=== PATIENT | female | born 1990 | race Caucasian/White ===

== ENCOUNTER 2024-08-15 06:57 | Inpatient (IN) | payer OTHER, SELFPAY ==
[2024-08-15] VITALS (119 sets, daily range): BP systolic 103–186; BP diastolic 28–123; PULSE 58–172; RESP 18; TEMP 36.3–36.9; O2SAT 96–100; BMI 32.1
[2024-08-15 08:02] LABS: Basophils Percent Auto 0.4 % (0.2-1.2); Eosinophils Absolute Auto 0.1 K/mm3 (0-0.3); Eosinophils Percent Auto 1.5 % (0-4.4); Hematocrit 35.6 % (37.0-47.0); Hemoglobin 11.8 g/dL (12.0-15.0); Immature Granulocyte Absolute 0.04 K/mm3 (0.00-0.031); Immature Granulocyte Percent A 0.5 % (0-0.5); Lymphocytes Absolute Auto 1.77 K/mm3 (0.9-3.2); Lymphocytes Percent Auto 24.2 % (18.3-44.2); Mean Corpuscular HGB Conc 33.1 g/dl (32-36); Mean Corpuscular Hemoglobin 30.4 pg (26-34); Mean Corpuscular Volume 91.8 fl (80-100); Monocytes Absolute Auto 0.4 K/mm3 (0.1-0.6); Neutrophils Absolute Auto 4.9 K/mm3 (1.3-6.7); Neutrophils Percent Auto 67.4 % (45.5-73.1); Platelet Count Result 240 k/mm3 (150-375); Red Blood Count 3.88 M/mm3 (4.2-5.4); Red Cell Distribution Width 13.9 % (11.5-14.5); White Blood Count 7.3 K/mm3 (4.5-10.0)
--- NOTE | 2024-08-15 08:16 | LDADM ---
This patient, Kami Hawkins, was admitted to Labor/Delivery/Recovery 103 on 08/15/24 at 06:57. Plans for labor, pain management and were discussed with patient. Patient/family oriented to hospital policies and general routines including ID bracelet, bed and alarms, visiting hours, pain management, procedures, bathroom and other care routines, personal items, smoking policy, room service/diet and guest tray routines, security routines, and visiting hours. Patient/Family are encouraged to report perceived risks to care and to ask questions if they do not understand what they are told or what they should do. See OBIX for further documentation.
--- NOTE | 2024-08-15 08:18 | WPDOBADMIT ---
Obstetrics - Admit Note Admission Note: record reviewed. Additions to the history and/or subsequent changes in the physical findings follow. 33 y/o at 38 3/7 weeks here with gush of fluid at 0600. SROM confirmed on L&D. Feeling occasional contractions. GBS pos. AVSS NST reactive TOCO: contractions irregularly ABD soft, nontender, gravid, vertex EXT nontender Cervix 3/50/-2. A: IUP at term with SROM. P: Anticipate . Ampicillin for GBS colonization.
[2024-08-15] MEDS: AMPICILLIN 2 GM/NS 100 ML 2 GM/100 ML BAG IVPB (08:43)
[2024-08-15] MEDS: LACTATED RINGERS 1,000 ML 125 ML IV CONT ×3 (08:43→18:38)
[2024-08-15 08:54] LABS: HIV 1/2 Ab P24 Ag Result Negative (Negative)
[2024-08-15 11:00] LABS: Rapid Plasma Reagin Non-Reactive (NonReactive)
[2024-08-15] MEDS: OXYTOCIN 30 UNITS/NS 500 ML 30 UNITS/500 ML BAG IV CONT (11:26)
[2024-08-15] MEDS: AMPICILLIN 1 GM/NS 50 ML 1 GM/50 ML BAG IVPB ×2 (13:11→16:51)
--- NOTE | 2024-08-15 14:37 | WPDANESEPP ---
Anes - Eval Pre Procedure Procedure: Labor epidural Date/Time: 08/15/24 14:37 Surgeon: Shankar Preop Diagnosis: Pain during labor Pre Op Diagnosis: Spontaneous Rupture of Membranes Patient Data Age: 33 Gender: F Height: 1.63 m Weight: 85 kg Last Vital Signs Temp 36.3 C L 08/15/24 12:00 Pulse 74 08/15/24 14:35 BP 141/85 H 08/15/24 14:35 Pulse Ox 100 08/15/24 14:36 O2 Del Method Room Air 08/15/24 08:14 Allergies Allergy/AdvReac Type Severity Reaction Status Date / Time No Known Allergies Allergy Verified 07/27/24 13:24 Home Medications Medication Instructions Recorded Confirmed Type aspirin 81 mg tablet 81 mg PO DAILY 07/27/24 07/27/24 History vits no.126-ferrous fum 1 tablet PO DAILY 07/27/24 07/27/24 History 28 mg iron-folic acid 800 mcg tablet (Classic ) valacyclovir 500 mg tablet 500 mg PO DAILY 07/27/24 08/15/24 History (Valtrex) Laboratory Tests 08/15/24 07:34 WBC 7.3 K/mm3 (4.5-10.0) RBC 3.88 L M/mm3 (4.2-5.4) Hgb 11.8 L g/dL (12.0-15.0) Hct 35.6 L % (37.0-47.0) MCV 91.8 fl (80-100) MCH 30.4 pg (26-34) MCHC 33.1 g/dl (32-36) RDW 13.9 % (11.5-14.5) Plt Count 240 k/mm3 (150-375) MPV 11.0 H fl (7.4-10.4) Immature Gran % (Auto) 0.5 % (0-0.5) Neut % (Auto) 67.4 % (45.5-73.1) Lymph % (Auto) 24.2 % (18.3-44.2) [place] % (Auto) 6.0 % (2.6-8.5) Eos % (Auto) 1.5 % (0-4.4) Baso % (Auto) 0.4 % (0.2-1.2) Lymph # (Auto) 1.77 K/mm3 (0.9-3.2) [place] # (Auto) 0.4 K/mm3 (0.1-0.6) Eos # (Auto) 0.1 K/mm3 (0-0.3) Baso # (Auto) 0.0 K/mm3 (0.0-0.1) Abs Immat Gran (auto) 0.04 H K/mm3 (0.00-0.031) Absolute Neuts (auto) 4.9 K/mm3 (1.3-6.7) Absolute Nucleated RBC 0.000 K/mm3 (0.0-0.012) Nucleated RBC % 0.0 % (0.0-0.2) RPR Non-reactive (NonReactive) HIV 1&2 Ab/P24 Ag 4thGn Negative (Negative) Blood Type O Positive Antibody Screen Negative Patient hx anesthesia problems: none Family hx anesthesia problems: none Results Review: All pre-operative results and documents have been reviewed as part of the pre-operative evaluation. [facility] [place] Family History Family History Grandparent Family history of malignant neoplasm of breast in first degree relative Mother Family history of malignant neoplasm of breast in first degree relative Other Diabetes mellitus Social History Social History Smoking status: Never smoker Alcohol intake: never Substance use: never Do You Feel Safe in your Home?: Yes Lack of Transportation: No Lack of Food: Never True Current Housing: I Have Housing Concerned About Future Housing: No Difficulty Paying Gas/Electric Bills: No Difficulty Paying for Meds: No Currently Unemployed: No Education: Master's Degree or Higher Difficulty w/ Childcare or Family Care: No Spiritual care concerns: No Exam Day of Procedure 08/15/24 14:37 Patient weight: overweight Heart: regular rate and rhythm Lungs: clear to auscultation and normal air movement Airway: Mallampati scale class II Neurological: alert and oriented
--- NOTE | 2024-08-15 19:34 | P.PCNOB_ITS ---
OB - Vaginal Delivery Note Procedure Delivery date: 08/15/24 Events: Positive Group B Strep (GBS) Induction method: None Delivery monitor: External FHT and External Uterine Route of delivery: Episiotomy description: None Laceration Description: None Specimen: Yes (cord blood) Quantitative Blood Loss (ml): 95 Anesthesia type: Epidural Disposition: PACU Complications: None Narrative: 33 y/o at 38 3/7 weeks gestation who presented to the hospital after a gush of clear fluid. SROM was confirmed. She received ampicillin for GBS colonization. She received an epidural for pain control. Labor was augmented with oxytocin. Her labor progressed and her cervix dilated completely. She pushed with good effort and delivered the 's head to the perineum. A loose nuchal cord was splinted and the body delivered. The cord was reduced and the nose and mouth were bulb suctioned. After a delay, the cord was clamped and cut. The was handed off the field. Cord blood was collected. The caterina stewart delivered spontaneously and was grossly normal in appearance. The usual 3 vessel cord was noted. There were no lacerations. Sponge, needle and instrument counts were correct. The patient was taken to recovery room in stable condition. The infant went to the nursery in stable condition. I was present and scrubbed for the entire delivery. Dequincy Baby Date of : 08/15/24 Time of : 19:22 Gestational Age by Date: 37 gender: Male presentation: vertex position: Left Occiput Anterior Placenta delivery description: Spontaneous and Normal Configuration Cord Vessel Description: 3 Vessels, Nuchal Cord (x1) and Delayed Cord Clamping
--- NOTE | 2024-08-15 19:37 | PM.OBDSVD ---
DS: Admitting Diagnosis Discharge Date 08/16/24 Admitting Diagnosis IUP at 38 3/7 weeks SROM GBS pos DS: Discharge Diagnosis Discharge Diagnosis (1) (normal spontaneous vaginal delivery): Code(s): O80 - Encounter for full-term uncomplicated delivery Status: Acute (2) GBS (group B Streptococcus carrier), +RV culture, currently : Code(s): O99.820 - Streptococcus B carrier state complicating Status: Acute OB - DS: Summary OB Procedures : None OB Procedures Intrapartum: Spontaneous Vag Delivery and GBS prophylaxis OB Procedures: : None Peripartum Data Laceration Description: None Episiotomy description: None Time Spent with Patient Time attestation: Total time spent providing and/or coordinating discharge services: DS: Data Data Completed and Pending Labs on day of discharge: Labs from last 24 hours 08/15/24 07:34 WBC 7.3 RBC 3.88 L Hgb 11.8 L Hct 35.6 L MCV 91.8 MCH 30.4 MCHC 33.1 RDW 13.9 Plt Count 240 MPV 11.0 H Immature Gran % (Auto) 0.5 Neut % (Auto) 67.4 Lymph % (Auto) 24.2 [place] % (Auto) 6.0 Eos % (Auto) 1.5 Baso % (Auto) 0.4 Lymph # (Auto) 1.77 [place] # (Auto) 0.4 Eos # (Auto) 0.1 Baso # (Auto) 0.0 Abs Immat Gran (auto) 0.04 H Absolute Neuts (auto) 4.9 Absolute Nucleated RBC 0.000 Nucleated RBC % 0.0 RPR Non-reactive HIV 1&2 Ab/P24 Ag 4thGn Negative Blood Type O Positive Antibody Screen Negative Discharge Plan Discharge Attending physician on discharge: Sage Chaparro Discharging Clinician: Sage Chaparro Patient Disposition: Home, Self-Care Activity: pelvic rest Diet: regular Discharge Instructions: Call or return if temperature above 100.4? F, increased abdominal pain, increased vaginal bleeding or any new problems. Stand Alone Forms: General Discharge Information Follow-up/Referrals: Sage Chaparro MD [Physician] - 6 Weeks Discharge Medications: New ibuprofen 600 mg tablet 600 mg PO Q6H PRN (Reason: cramps) Qty: 30 0RF Continued Classic 28 mg iron- 800 mcg Tablet 1 tablet PO DAILY Discontinued valacyclovir [Valtrex] 500 mg Tablet 500 mg PO DAILY aspirin 81 mg Tablet 81 mg PO DAILY Date of admission: 08/15/24 06:57 Primary Care Provider: UNKNOWN,DOCTOR Admitting Provider: Sage Chaparro Attending physician on admission: Sage Chaparro Condition: Stable
[2024-08-15] MEDS: OXYTOCIN 30 UNITS/NS 500 ML 30 UNITS/500 ML BAG 125 UNITS IV CONT (20:05)
[2024-08-15] MEDS: COSYNTROPIN 0.25 MG/ML VIAL 1 MG IV PUSH (21:20)
[2024-08-15] MEDS: WITCH HAZEL 40 PADS 1 PAD TOPICAL (21:26)
[2024-08-15] MEDS: BENZOCAINE 20% AER SPR (*SP) 56 GM CAN 1 SPRAY TOPICAL (21:26)
--- NOTE | 2024-08-15 22:21 | OBPPTRN ---
4238. Patient transferred to post room # via 287 , baby at moms side. Support person present. Oriented to unit, room, information board, rooming in, admission packet and security measures. Patient verbalizes understanding.
[2024-08-16 04:45] VITALS: BP 118/75; PULSE 67; RESP 16; TEMP 36.8; O2SAT 99
[2024-08-16 05:57] LABS: Hematocrit 33.2 % (37.0-47.0); Hemoglobin 11.4 g/dL (12.0-15.0)
[2024-08-16 07:35] VITALS: BP 118/88; PULSE 69; RESP 16; TEMP 37.1; O2SAT 100
[2024-08-16 08:00] VITALS: PULSE 69; RESP 16; O2SAT 100
--- NOTE | 2024-08-16 08:57 | PM.OBPNVD ---
OB - PN: Subj Subjective Date/time seen: 08/16/24 08:57 Narrative: Pain OK. Would like circumcision for son. Would like to go home. OB - PN: Obj Data Labs 08/16/24 04:57 Labs: Laboratory Results - last 24 hr 08/15/24 08/16/24 07:34 04:57 Hgb 11.4 L Hct 33.2 L RPR Non-reactive OB - PN A/P Plan Comments: A: PPD#1, doing well. P: Reviewed circ. Home to f/u 6 weeks. Exam Psych: Other: AVSS ABD soft, nontender, fundus firm EXT nontender
--- NOTE | 2024-08-16 09:15 | PC.NURSE ---
0897 Introductions were made, then consulted with patient to assess needs related to . Discussed with mother her?plans to feed?her infant and the?experience so far. Per mother baby had had a few attempts through the night and supervisor mending but needed to breastfeed, RN advised mother to unwrap baby, check the diaper and place baby skin to skin and call RN. Resources provided for inpatient and outpatient services with the feeding sheet, mom/baby guide and name written on the communication board. Mother voiced understanding of information and will call if there is a request for assistance. Reported to the Primary RN. 0995 RN reviewed with mother working with the , supporting breast, protecting her nipples with an optimal deep latch, good positioning, and good hand washing. Encouraged understanding the benefits of skin to skin, responding to feeding cues, frequencies of feeding 8-12 times in 24 hours (approximately 2-3 hours), duration of feedings, milk production, intake/output feeding sheet and signs of adequate intake encouraging swallowing at the breast. Reviewed positioning and alignment, supporting breast, off-centered (asymmetrical latch) and leading with the chin with big, open, wide gape. Infant latched optimally to the left breast in cross cradle position. Education given to the mother of how to visualize the suckling (with good rocking jaw motion) swallows (dropping of the lower jaw) and how to listen for drinking at the breast (the ka sound). The infant was able to maintain latch without discomfort to mother. Nipple care reviewed with optimal latch, good positioning and using clean hands when touching her breast. Resources used to facilitate learning were used from the mom and baby guide. Mother voiced understanding of the education shared, to call for assistance if the infant does not remain latched or if there is discomfort with . Reported to the Primary RN.
[2024-08-16] MEDS: DOCUSATE SODIUM 100 MG CAPSULE PO (10:07)
[2024-08-16] MEDS: MULTIVIT/MIN/PREN/FOL AC/IRON TABLET 1 TAB PO (10:07)
[2024-08-16 11:54] VITALS: BP 122/78; PULSE 78; RESP 18; TEMP 36.6; O2SAT 100
--- NOTE | 2024-08-16 18:52 | WPDANLDPN2 ---
Anes-Prog Note L&D Date/Time: 08/16/24 18:52 Comfortable throughout: labor and delivery Neuraxial method: epidural Epidural/Spinal procedure site: clean & non-tender Neuro status: Neuro function grossly intact. Cardiovascular status: normal Respiratory status: normal Airway patency: baseline Mental status: baseline Post-Op hydration status: normal Vital Signs: Last Vital Signs Temp 36.6 C 08/16/24 11:54 Pulse 78 08/16/24 11:54 Resp 18 08/16/24 11:54 BP 122/78 08/16/24 11:54 Pulse Ox 100 08/16/24 11:54 O2 Del Method Room Air 08/16/24 08:00 Pain score (VAS): 10/29 Post-procedural complaints: none Patient feedback: Patient satisfied with anesthetic care.
[2024-08-16 20:30] VITALS: BP 130/75; PULSE 84; RESP 16; TEMP 36.4; O2SAT 98
[2024-08-16] MEDS: IBUPROFEN 600 MG TABLET PO (20:43)
--- NOTE | 2024-08-17 08:15 | PC.NURSE ---
Consulted with mother concerning needs and she shared her ability to independently latch infant optimally without pain. She breastfed her other 2 children. Mother is feeding appropriately for growth of and understands stimulating infant to eat if needed. has had appropriate feedings in the last 24 hours meets the outcomes for weight, blood sugar and jaundice at this time. has not had a wet diaper in over 12 hours so ordered supplementation after each feeding. Mom has a pump at home, we discussed triple feeding and how she can add pumping in if desired. Reinforced understanding of milk production, transition of milk, signs of adequate intake, transition of stool, prevention/relief of engorgement, plugged ducts, mastitis, responsive watching for feeding cues, the different methods of stimulating infant to breastfeed 1-3 hours after the start of the last feeding, community resources, and when to call a provider using the resource of the feeding sheet along with the mom and baby guide. Mother voiced understanding of the information shared, is confident to continue effectively her infant at home, when to call for assistance, denies any additional assistance or education at this time. Reported to the Primary RN.
[2024-08-17 08:30] VITALS: BP 135/82; PULSE 74; RESP 18; TEMP 36.2; O2SAT 100
[2024-08-17] MEDS: DOCUSATE SODIUM 100 MG CAPSULE PO (08:33)
[2024-08-17] MEDS: IBUPROFEN 600 MG TABLET PO (08:33)
[2024-08-17] MEDS: MULTIVIT/MIN/PREN/FOL AC/IRON TABLET 1 TAB PO (08:33)
[2024-08-17] MEDS: LANOLIN (LANSINOH) 7.5 GM CREAM 1 APPLIC TOPICAL (08:34)
--- NOTE | 2024-08-17 10:12 | PM.OBPNVD ---
OB - PN: Subj Subjective Date/time seen: 08/17/24 10:12 Narrative: Pain OK. Would like to go home. OB - PN: Obj Data Labs 08/16/24 04:57 OB - PN A/P Plan Comments: A: PPD#2, doing well. P: Home to f/u 6 weeks. Exam Psych: Other: AVSS ABD soft, nontender, fundus firm EXT nontender
[2024-08-18 11:25] VITALS: BP 132/92; PULSE 74; RESP 18; TEMP 37; O2SAT 100
== END 2024-08-17 12:18 | disposition home or self-care (01) | DRG 807 ==
LOC: ANHLDR 19:38 → ANHOB2 22:20
PROVIDERS: Admitting Provider Obstetrics & Gynecology; Visit Provider Obstetrics & Gynecology
DX: O99.824 Streptococcus B carrier state complicating childbirth (principal); Z37.0 Single live birth; Z3A.38 38 weeks gestation of pregnancy; O69.81X0 Labor and delivery complicated by cord around neck, without compression, not applicable or unspecified
CPT/HCPCS: 36415; 85014; 85018; 85025; 86592; 86703; 86850; 86900; 86901; A9270; G0432; J0290; J0834; J2590; J2795; J7120

== ENCOUNTER 2025-07-11 10:00 | Outpatient (CLI) | payer OTHER, SELFPAY ==
[2025-07-11 11:03] LABS: Beta HCG Quantitative 756.78 mIU/ML
== END 2025-07-11 10:01 | disposition home or self-care (01) ==
PROVIDERS: Visit Provider Obstetrics & Gynecology
DX: O20.0 Threatened abortion (principal); Z3A.00 Weeks of gestation of pregnancy not specified
CPT/HCPCS: 36415; 84144; 84702

== ENCOUNTER 2025-07-13 12:14 | Outpatient (CLI) | payer OTHER, SELFPAY ==
[2025-07-13 13:20] LABS: Beta HCG Quantitative 443.56 mIU/ML
== END 2025-07-13 12:15 | disposition home or self-care (01) ==
PROVIDERS: Visit Provider Nurse Practitioner Obstetrics & Gynecology
DX: O20.0 Threatened abortion (principal); Z3A.00 Weeks of gestation of pregnancy not specified
CPT/HCPCS: 36415; 84702

== ENCOUNTER 2025-07-20 09:12 | Outpatient (CLI) | payer OTHER, SELFPAY ==
[2025-07-20 10:12] LABS: Beta HCG Quantitative 8.79 mIU/ML
== END 2025-07-20 09:13 | disposition home or self-care (01) ==
LOC: ANHLAB 09:13
PROVIDERS: Visit Provider Obstetrics & Gynecology
DX: O03.9 Complete or unspecified spontaneous abortion without complication (principal); Z3A.00 Weeks of gestation of pregnancy not specified
CPT/HCPCS: 36415; 84702

== ENCOUNTER 2025-09-27 11:13 | Outpatient (CLI) | payer SELFPAY | END 2025-09-27 11:14 | disposition home or self-care (01) | PROVIDERS: Visit Provider Obstetrics & Gynecology | DX: Z34.90 Encounter for supervision of normal pregnancy, unspecified, unspecified trimester (principal) | CPT/HCPCS: 36415; 84144; 84702 ==